=== PATIENT | female | born 1990 ===

== ENCOUNTER 2022-06-30 09:34 | Inpatient (IN) | payer OTHER ==
[~2022-06-30] VITALS: Ht 162.6 cm; Wt 90.7 kg
[2022-06-30] MEDS ORDERED: PRENATAL 19 CH1 EACH PO (10:32)
== END 2022-07-02 13:03 | disposition home or self-care (01) | DRG 798 ==
LOC: LDR 09:34 → OB/GYN 09:34 → O/R 17:11 → OB/GYN 17:16
PROVIDERS: ADMIT Specialist; ATTEND Specialist
PROC: 0UB70ZZ Excision of Bilateral Fallopian Tubes, Open Approach (ICD-10-PCS; 2022-06-30)
PROC: 0KQM0ZZ Repair Perineum Muscle, Open Approach (ICD-10-PCS; 2022-06-30)
PROC: 4A1HXCZ Monitoring of Products of Conception, Cardiac Rate, External Approach (ICD-10-PCS; 2022-06-30)
PROC: 10E0XZZ Delivery of Products of Conception, External Approach (ICD-10-PCS; principal; 2022-06-30 16:00)
DX: O70.1 Second degree perineal laceration during delivery (principal); Z37.0 Single live birth; Z3A.39 39 weeks gestation of pregnancy; Z30.2 Encounter for sterilization; Z20.822 Contact with and (suspected) exposure to COVID-19